=== PATIENT | female | born 1970 | race Caucasian/White ===

== ENCOUNTER 2017-01-18 21:07 | Emergency (ER) | payer SELFPAY ==
[~2017-01-18 21:07] MED LIST: ADULT LOW DOSE81 MG PO; CRESTOR20 MG PO; GLUCOPHAGE 500500 MG PO; LISINOPRIL40 MG PO; METOPROLOL SUC100 MG PO
== END 2017-01-18 23:15 | disposition home or self-care (01) ==
LOC: ER1 21:07
DX: J06.9 Acute upper respiratory infection, unspecified (principal); I10 Essential (primary) hypertension; E11.9 Type 2 diabetes mellitus without complications; Z79.84 Long term (current) use of oral hypoglycemic drugs; Z79.899 Other long term (current) drug therapy
CPT/HCPCS: 96372; 99282; J0696